=== PATIENT | male | born 1960 | race Caucasian/White ===

== ENCOUNTER 2017-06-05 16:53 | Emergency (ER) | payer BC ==
[2017-06-05] MEDS ORDERED: SODIUM BICARB 8.4% 50 ML SYR (1 MEQ/ML) ONE (17:00)
[2017-06-05] MEDS ORDERED: EPINEPHrine 10 ML SYRINGE (0.1 MG/ML) ONE (17:00)
[2017-06-05] MEDS ORDERED: LIDOCAINE 2% INJ 20 MG/ML (20 ML MDV) ONE (17:07)
--- NOTE | 2017-06-05 17:16 | ED ---
CPR HPI - General Stated Complaint: Unresponsive Time Seen by Provider: 06/05/17 17:16 - History of Present Illness Initial Comments: This is a 57-year-old male with no past medical history who presents emergency department for STEMI and cardiac arrest. I received a call from [facility] stating that the patient had an inferior wall STEMI and had lost pulses multiple times however that they had achieved ROSC And were transferring him here for cardiac cath. Dr. Ponce, was called who spoke to me before the patient's arrival and told me to activate the labeling specialist. Upon arrival the patient was in PE arrest. The patient had been down for approximately 20 minutes prior to arrival. He had received 8 rounds of epinephrine without ROSC. CPR was continued here the patient was given multiple doses of epinephrine and bicarbonate without gaining pulses back. Dr. Byrd was at bedside and decision made to terminate efforts at 1710. Family was notified. Review of Systems ROS Statement: Those systems with pertinent positive or pertinent negative responses have been documented in the HPI. ROS Other: All systems not noted in ROS Statement are negative. General Exam - General Exam Comments Initial Comments: Constitutional: Unresponsive Head: Normocephalic atraumatic Eyes: no conjunctival injection No scleral icterus pupils fixed and dilated Neck: No JVD Supple Heart: Absent cardiac sounds Lungs: Intubated with clear breath sounds bilaterally Abdomen: Soft nondistended Extremities: Non edematous pulseless Neuro: Unresponsive No focal neurologic deficits Psych: Unresponsive Medical Decision Making - Medical Decision Making This is a 57-year-old who came in for cardiac arrest and STEMI. CPR was continued for approximately 45 minutes. Patient did not gain pulses back. Efforts were terminated and the patient was pronounced at 1710. Dr. Thakur bedside agreed with management. Myself and Dr. Thakur updated family Disposition Clinical Impression: Cardiac arrest Disposition: Preliminary Cause of : STEMI
--- NOTE | 2017-06-05 19:48 | CONS ---
CONSULTATION Mr. Brownlee is a 57-year-old gentleman who was seen in the [facility] Emergency Room in the cardiac arrest. This patient initially presented to the [facility] Emergency Room with lower abdominal pain. While the patient was waiting in the ER, his monitor showed ST-segment elevation and he lost the pulse. The patient had a cardiac arrest. He went into bradycardia and no pulse. CPR was done and patient was intubated. Patient was treated with epinephrine after several continued CPR and epinephrine they were able to obtain the pulse. EKG showed evidence of extensive ST- segment elevation in the inferior lateral leads and the ER physician called us. There was a concern whether any acute intraabdominal processes was going on, but because of the cardiac arrest and EKG suggestive of inferolateral myocardial infarction, ER physician was advised to transfer him to the [facility] for urgent immediate cardiac catheterization. The patient does not have any significant past medical history. There was no history of diabetes, hypertension or previous medical history. The patient was otherwise healthy. In route from [facility] to [facility] ER, patient again lost the pulse. The patient had electromechanical dissociation. Patient received several doses of epinephrine and CPR was continued. After the patient arrived in the emergency room at [facility] there was no pulse. The patient had a electrical activity with a slow idioventricular rhythm without any pulse. CPR was continued and patient received epinephrine. The CPR and cardiac life support was continued for another 20 minutes for a total period of 45 minutes. We could not obtain any pulse and ultimately the patient was pronounced . The patient's condition was discussed with the family members and they were counseled. Discussion was also made regarding whether they want to have any autopsy done. They will let us know. FINAL IMPRESSION: 1. Cardiac arrest. 2. Acute myocardial infarction. MMODL / IJN: [id number] /
== END 2017-06-05 18:30 | disposition expired ==
LOC: EC 16:53
DX: I46.9 Cardiac arrest, cause unspecified (principal); I21.3 ST elevation (STEMI) myocardial infarction of unspecified site
CPT/HCPCS: 99285; 92950; J0171